=== PATIENT | female | born 1955 | race American Indian/Alaskan Native ===

== ENCOUNTER 2018-06-10 20:00 | Emergency (ER) | payer OTHER ==
[~2018-06-10] VITALS: Ht 170.2 cm; Wt 99.8 kg
[~2018-06-10 20:00] MED LIST: ATOR10 PO; CAPT25 PO; CIPR500 PO; HYDACE5 PO; HYDCHL25 PO; LISHYD1012 PO; LISHYD2012 PO; LISI20 PO; MECL25 PO; OXYACE5T PO; PENVK250 PO; PENVK500 PO; PROM25 PO; RXOXYACE PO; TRAM50 PO; Vistaril25 MG PO
[2018-06-10 20:58] LABS: BASOPHILS ABSOLUTE AUTO 0.08 K/mm3 (0.00-0.23); BASOPHILS PERCENT AUTO 1 % (0-2); EOSINOPHILS ABSOLUTE AUTO 0.25 K/mm3 (0.00-0.68); EOSINOPHILS PERCENT AUTO 3 % (0-6); Hematocrit 40.9 % (33.0-51.0); Hemoglobin 13.4 g/dL (11.5-16.0); IMMATURE GRAN ABSOLUTE AUTO 0.03 K/mm3 (0.00-0.10); IMMATURE GRAN PERCENT AUTO 0 % (0-1); LYMPHOCYTES ABSOLUTE AUTO 1.55 K/mm3 (0.84-5.20); LYMPHOCYTES PERCENT AUTO 16 % (21-46); MONOCYTES ABSOLUTE AUTO 0.86 K/mm3 (0.16-1.47); MONOCYTES PERCENT AUTO 9 % (4-13); Mean Corpuscular HGB 29.6 pg (26.0-34.0); Mean Corpuscular HGB Conc 32.8 g/dL (31.5-36.5); Mean Corpuscular Volume 90 fL (80-100); Mean Platelet Volume 9.4 fL (9.1-12.4); NEUTROPHILS ABSOLUTE AUTO 7.25 K/mm3 (1.96-9.15); NEUTROPHILS PERCENT AUTO 72 % (41-73); Platelet Count 334 K/mm3 (150-400); RDW Coefficient Variation 12.8 % (11.7-14.2); RDW Standard Deviation 42.3 fL (35.1-46.3); Red Blood Cell Count 4.53 M/mm3 (3.80-5.20); White Blood Cell Count 10.02 K/mm3 (4.00-11.30)
[2018-06-10 21:10] LABS: Alanine Aminotransfer (ALT/SGP 20 U/L (12-78); Albumin, Blood 3.4 g/dL (3.4-5.0); Alk Phos 121 U/L (50-136); Anion Gap 6 mmol/L (6-16); Aspartate Aminotrans (AST/SGOT 16 U/L (12-37); Bilirubin, Total 0.9 mg/dL (0.1-1.0); Blood Urea Nitrogen 18 mg/dL (8-24); Bun/Creatinine Ratio 18.9 (12.0-20.0); CO2, Blood 27 mmol/L (21-32); Calcium, Blood 8.1 mg/dL (8.5-10.1); Chloride, Blood 108 mmol/L (98-108); Creatinine, Blood 0.95 mg/dL (0.40-1.00); Globulin, Blood 3.3 g/dL (2.2-4.0); Glomerular Filtration Rate >60 (60-); Glucose, Blood 110 mg/dL (70-99); Potassium, Blood 3.6 mmol/L (3.5-5.5); Sodium, Blood 141 mmol/L (136-145); Total Protein, Blood 6.7 g/dL (6.4-8.2)
[2018-06-10 22:19] LABS: Source, Urine Clean Catch
[2018-06-10 22:22] LABS: Appearance, Urine Hazy (Clear); Blood, Urine Neg (Neg); Color, Urine Yellow (P-Yellow); Glucose Qualitative, Urine Neg (Neg); Ketones, Urine Neg (Neg); Leukocyte Esterase, Urine Neg (Neg); Nitrite, Urine Neg (Neg); Protein, Urine 2+ (Neg); Specific Gravity, Urine 1.025 (1.003-1.022); Urobilinogen, Urine 1+ (Normal)
[2018-06-10 22:25] LABS: Bilirubin, Urine 1+ (Neg)
[2018-06-10 22:30] LABS: Bacteria Few /hpf; Hyaline Casts 0-2 /lpf (0-2); Red Blood Cells, Urine 0-2 /hpf (0-2); Squamous Epithelial Cells Many /hpf (Few); White Blood Cells, Urine 0-2 /hpf (0-5)
[2018-06-10] MEDS ORDERED: LOSA25 (23:46)
[2018-06-10] MEDS ORDERED: PARO10 (23:47)
[2018-06-10] MEDS ORDERED: METO25 (23:47)
[2018-06-10] MEDS ORDERED: TRAZ50 (23:47)
[2018-06-10] MEDS ORDERED: Colace100 MG PO (23:51)
[2018-06-10] MEDS ORDERED: Norco 5-325 Ta1 EACH PO (23:51)
== END 2018-06-11 00:20 | disposition home or self-care (01) ==
LOC: ER 20:00
PROVIDERS: Emergency Medicine
DX: S80.02XA Contusion of left knee, initial encounter (principal); K59.00 Constipation, unspecified; I10 Essential (primary) hypertension; E78.00 Pure hypercholesterolemia, unspecified; F17.200 Nicotine dependence, unspecified, uncomplicated; Z79.899 Other long term (current) drug therapy; W19.XXXA Unspecified fall, initial encounter
CPT/HCPCS: 29505; 36415; 73564; 74177; 80053; 81001; 83690; 85025; 96361; 96374; 99284-25; J3010; J7030; Q9967

== ENCOUNTER 2019-10-24 19:14 | Emergency (ER) | payer OTHER, MEDICARE ==
[~2019-10-24] VITALS: Ht 170.2 cm; Wt 105.7 kg
[~2019-10-24 19:14] MED LIST changes: +Colace100 MG PO; +LOSA25; +METO25; +Norco 5-325 Ta1 EACH PO; +PARO10; +TRAZ50
[2019-10-24] MEDS ORDERED: AMLO10 PO (19:42)
[2019-10-24] MEDS ORDERED: ALBU90OI INH (19:43)
[2019-10-24 19:49] LABS: BASOPHILS ABSOLUTE AUTO 0.03 K/mm3 (0.00-0.23); BASOPHILS PERCENT AUTO 0 % (0-2); EOSINOPHILS ABSOLUTE AUTO 0.12 K/mm3 (0.00-0.68); EOSINOPHILS PERCENT AUTO 2 % (0-6); Hematocrit 42.9 % (33.0-51.0); Hemoglobin 14.3 g/dL (11.5-16.0); IMMATURE GRAN ABSOLUTE AUTO 0.04 K/mm3 (0.00-0.10); IMMATURE GRAN PERCENT AUTO 1 % (0-1); LYMPHOCYTES ABSOLUTE AUTO 2.36 K/mm3 (0.84-5.20); LYMPHOCYTES PERCENT AUTO 29 % (21-46); MONOCYTES ABSOLUTE AUTO 0.54 K/mm3 (0.16-1.47); MONOCYTES PERCENT AUTO 7 % (4-13); Mean Corpuscular HGB 29.8 pg (26.0-34.0); Mean Corpuscular HGB Conc 33.3 g/dL (31.5-36.5); Mean Corpuscular Volume 89 fL (80-100); Mean Platelet Volume 9.1 fL (9.1-12.4); NEUTROPHILS ABSOLUTE AUTO 5.17 K/mm3 (1.96-9.15); NEUTROPHILS PERCENT AUTO 63 % (41-73); Platelet Count 265 K/mm3 (150-400); RDW Coefficient Variation 13.7 % (11.7-14.2); RDW Standard Deviation 44.8 fL (35.1-46.3); White Blood Cell Count 8.26 K/mm3 (4.00-11.30)
[2019-10-24 20:20] LABS: Troponin I <0.015 ng/mL (0.000-0.040)
[2019-10-24 20:22] LABS: Alanine Aminotransfer (ALT/SGP 34 U/L (12-78); Albumin, Blood 3.3 g/dL (3.4-5.0); Albumin/Globulin Ratio 0.8 (0.8-1.8); Alk Phos 84 U/L (50-136); Anion Gap 5 mmol/L (6-16); Aspartate Aminotrans (AST/SGOT 23 U/L (12-37); Bilirubin, Total 1.1 mg/dL (0.1-1.0); Blood Urea Nitrogen 8 mg/dL (8-24); Bun/Creatinine Ratio 8.4 (12.0-20.0); CO2, Blood 28 mmol/L (21-32); Calcium, Blood 8.7 mg/dL (8.5-10.1); Chloride, Blood 108 mmol/L (98-108); Creatinine, Blood 0.96 mg/dL (0.40-1.00); Glomerular Filtration Rate >60 (60-); Glucose, Blood 90 mg/dL (70-99); Potassium, Blood 3.2 mmol/L (3.5-5.5); Sodium, Blood 141 mmol/L (136-145); Total Protein, Blood 7.3 g/dL (6.4-8.2)
[2019-10-24] MEDS ORDERED: Amoxicillin875 MG PO (23:09)
[2019-10-24] MEDS ORDERED: Prednisone20 MG PO (23:09)
== END 2019-10-24 23:30 | disposition home or self-care (01) ==
LOC: ER 19:14
PROVIDERS: Physician Assistant
DX: J44.1 Chronic obstructive pulmonary disease with (acute) exacerbation (principal); Z79.899 Other long term (current) drug therapy; I10 Essential (primary) hypertension; F17.200 Nicotine dependence, unspecified, uncomplicated
CPT/HCPCS: 36415; 71046; 80053; 83605; 84484; 85025; 87040; 93005; 93010; 94640; 96374; 99285-25; J2930

== ENCOUNTER → 2021-06-16 | Outpatient (CLI) | payer MEDICARE, OTHER ==
[~2021-06-16] MED LIST changes: +ALBU90OI INH; +AMLO10 PO; +Amoxicillin875 MG PO; +Prednisone20 MG PO
[2021-06-16 15:32] LABS: BASOPHILS ABSOLUTE AUTO 0.02 K/mm3 (0.00-0.23); BASOPHILS PERCENT AUTO 0 % (0-2); EOSINOPHILS PERCENT AUTO 0 % (0-6); Hematocrit 43.2 % (33.0-51.0); Hemoglobin 14.1 g/dL (11.5-16.0); IMMATURE GRAN ABSOLUTE AUTO 0.07 K/mm3 (0.00-0.10); IMMATURE GRAN PERCENT AUTO 1 % (0-1); LYMPHOCYTES ABSOLUTE AUTO 0.73 K/mm3 (0.84-5.20); LYMPHOCYTES PERCENT AUTO 8 % (21-46); MONOCYTES ABSOLUTE AUTO 0.39 K/mm3 (0.16-1.47); MONOCYTES PERCENT AUTO 4 % (4-13); Mean Corpuscular HGB 28.7 pg (26.0-34.0); Mean Corpuscular HGB Conc 32.6 g/dL (31.5-36.5); Mean Corpuscular Volume 88 fL (80-100); Mean Platelet Volume 9.7 fL (9.1-12.4); NEUTROPHILS ABSOLUTE AUTO 7.64 K/mm3 (1.96-9.15); NEUTROPHILS PERCENT AUTO 86 % (41-73); Platelet Count 305 K/mm3 (150-400); RDW Coefficient Variation 13.8 % (11.7-14.2); RDW Standard Deviation 44.5 fL (35.1-46.3); Red Blood Cell Count 4.92 M/mm3 (3.80-5.20); White Blood Cell Count 8.85 K/mm3 (4.00-11.30)
[2021-06-16 15:59] LABS: Albumin, Blood 2.8 g/dL (3.4-5.0); Albumin/Globulin Ratio 0.6 (0.8-1.8); Bilirubin, Total 0.9 mg/dL (0.1-1.0); Bun/Creatinine Ratio 11.9 (12.0-20.0); Calcium, Blood 8.8 mg/dL (8.5-10.1); Creatinine, Blood 1.26 mg/dL (0.40-1.00); Globulin, Blood 4.9 g/dL (2.2-4.0); Potassium, Blood 3.6 mmol/L (3.5-5.5); Total Protein, Blood 7.7 g/dL (6.4-8.2)
== END | disposition home or self-care (01) ==
LOC: LAB SHORT 14:53 → LAB 14:53
PROVIDERS: Physician Assistant
DX: R53.83 Other fatigue (principal)
CPT/HCPCS: 80053; 85025

== ENCOUNTER 2021-11-16 21:06 | Emergency (ER) | payer MEDICARE, OTHER ==
[~2021-11-16] VITALS: Ht 170.2 cm; Wt 108.9 kg
[2021-11-17] MEDS ORDERED: IBUP400 PO (02:18)
== END 2021-11-17 02:23 | disposition home or self-care (01) ==
LOC: ER 21:06
DX: S93.401A Sprain of unspecified ligament of right ankle, initial encounter (principal); Z23 Encounter for immunization; I10 Essential (primary) hypertension; E78.00 Pure hypercholesterolemia, unspecified; J44.9 Chronic obstructive pulmonary disease, unspecified; F17.200 Nicotine dependence, unspecified, uncomplicated; Z79.52 Long term (current) use of systemic steroids; Z79.899 Other long term (current) drug therapy; W18.30XA Fall on same level, unspecified, initial encounter
CPT/HCPCS: 73562-RT; 73610; 90471; 90714; 99283-25; A9270

== ENCOUNTER 2022-04-24 06:57 | Day surgery (SDC) | payer MEDICARE, OTHER ==
[~2022-04-24] VITALS: Ht 167.6 cm; Wt 113.3 kg
[~2022-04-24 06:57] MED LIST changes: +Aspir 8181 MG PO; +GABA100 PO; +IBUP400 PO; -LOSA25; +LOSA25 PO; -METO25; +METO25 PO; +OMEP20ER PO; -PARO10; +PARO10 PO; +POTA10T PO; +PYRI100 PO; +THERA-D2000 UNIT PO; -TRAZ50; +TRAZ50 PO
--- NOTE | 2022-04-24 08:41 | NUR ---
04/24/22 0841 Kandis Waters History, Chart, Medications and Allergies reviewed before start of procedure.MONITOR INTACT WITH CONTINUOUS PULSE OXIMETRY AND INTERMITTENT BP. 3-LEAD EKG REVIEWED WITH PHYSICIAN PRIOR TO START OF PROCEDURE. O2 VIA POM INTACT THROUGHOUT SEDATION/PROCEDURE. See Anesthesia record PROVIDED BY DR. NEELY.
--- NOTE | 2022-04-24 09:50 | NUR ---
DISCHARGE SUMMARY PT A&OX4, VSS/RA, JUDY PO, DENIES PAIN, DENIES N&V, AMB TO [facility] REP VOIDING, WC OUT WITH DC VOLUNTEER TO GO HOME WITH DAUGHTER CHIQUITA WITH DC INSTRUCTIONS AND ALL PERSONAL POSSESSIONS. IV DC'D.
== END 2022-04-24 22:34 | disposition home or self-care (01) ==
LOC: ORSCMMR 06:57 → ORD 08:45 → ORSCMMR 08:45
PROVIDERS: Internal Medicine Gastroenterology
PROC: 0DJD8ZZ Inspection of Lower Intestinal Tract, Via Natural or Artificial Opening Endoscopic (ICD-10-PCS; principal; 2022-04-24 08:45)
DX: Z12.11 Encounter for screening for malignant neoplasm of colon (principal); Z86.010 Personal history of colon polyps; K64.8 Other hemorrhoids; I10 Essential (primary) hypertension; R06.02 Shortness of breath; J44.9 Chronic obstructive pulmonary disease, unspecified; E78.00 Pure hypercholesterolemia, unspecified; F32.A Depression, unspecified; K21.9 Gastro-esophageal reflux disease without esophagitis; Z87.891 Personal history of nicotine dependence; E66.01 Morbid (severe) obesity due to excess calories; Z68.41 Body mass index [BMI] 40.0-44.9, adult; Z79.82 Long term (current) use of aspirin; Z79.899 Other long term (current) drug therapy
CPT/HCPCS: J2704; J7120

== ENCOUNTER 2023-03-26 08:44 | Day surgery (SDC) | payer MEDICARE, OTHER ==
[~2023-03-26] VITALS: Ht 170.2 cm; Wt 112.8 kg
[2023-03-26 10:33] VITALS: BP 102/58
--- NOTE | 2023-03-26 10:38 | NUR ---
03/26/23 1038 Kofi Austin IV REMOVED INTACT. SITE WNL.
== END 2023-03-26 10:50 | disposition home or self-care (01) ==
LOC: ORSCSDS 08:44
PROVIDERS: Ophthalmology
PROC: 08DK3ZZ Extraction of Left Lens, Percutaneous Approach (ICD-10-PCS; principal; 2023-03-26 10:00)
DX: H25.12 Age-related nuclear cataract, left eye (principal); E78.5 Hyperlipidemia, unspecified; I10 Essential (primary) hypertension; J44.9 Chronic obstructive pulmonary disease, unspecified; E66.9 Obesity, unspecified; Z68.38 Body mass index [BMI] 38.0-38.9, adult; Z79.899 Other long term (current) drug therapy
CPT/HCPCS: J1100; J2250; J2405; J3010; J3301; J7040; V2632

== ENCOUNTER 2023-04-23 07:07 | Day surgery (SDC) | payer MEDICARE, OTHER ==
[~2023-04-23] VITALS: Ht 170.2 cm; Wt 113.2 kg
--- NOTE | 2023-04-23 07:37 | NUR ---
04/23/23 0737 Vita Melchor 0731 TETRACAINE ADMNISISTERED TO THE R EYE, PLEDGET PLACED IN R EYE AT 0733
[2023-04-23 08:56] VITALS: BP 109/72
== END 2023-04-23 09:08 | disposition home or self-care (01) ==
LOC: ORSCSDS 07:07
PROVIDERS: Ophthalmology
PROC: 08DJ3ZZ Extraction of Right Lens, Percutaneous Approach (ICD-10-PCS; principal; 2023-04-23 08:30)
DX: H25.11 Age-related nuclear cataract, right eye (principal); Z96.1 Presence of intraocular lens; I12.9 Hypertensive chronic kidney disease with stage 1 through stage 4 chronic kidney disease, or unspecified chronic kidney disease; N18.30 Chronic kidney disease, stage 3 unspecified; E20.9 Hypoparathyroidism, unspecified; E78.5 Hyperlipidemia, unspecified; J44.9 Chronic obstructive pulmonary disease, unspecified; K21.9 Gastro-esophageal reflux disease without esophagitis; E66.9 Obesity, unspecified; Z68.39 Body mass index [BMI] 39.0-39.9, adult; Z87.891 Personal history of nicotine dependence; Z79.82 Long term (current) use of aspirin; Z79.899 Other long term (current) drug therapy
CPT/HCPCS: J2001; J2250; J3010; J3301; J7040; V2632